=== PATIENT | female | born 1995 | race Caucasian/White ===

== ENCOUNTER 2018-06-03 14:16 | Emergency (ER) | payer OTHER ==
[2018-06-03 14:58] VITALS: BP 123/67
--- NOTE | 2018-06-03 15:11 | UC ---
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 No LOC. Headache pain in frontal over the area of impact. No nausea, confusion or difficulty concentrating. - History Of Current Complaint Chief Complaint: UCHeadInjury Stated Complaint: SPORTS HEAD INJURY - NO L.O.C. Time Seen by Provider: 06/03/18 15:01 Hx Obtained From: Patient Hx Last Menstrual Period: 05/23/18 ?: No Onset/Duration: Sudden Onset, Lasting Hours - 4, Still Present Severity Currently: Severe Severity Initially: Mild Pain Intensity: 1 Character: Dull Aggravating Factor(s): Other - touch Alleviating Factor(s): Nothing Associated Signs And Symptoms: Positive: Negative - Risk Factors SDH Risk Factor: Recent Trauma - Allergies/Home Medications Allergies/Adverse Reactions: Allergies Allergy/AdvReac Type Severity Reaction Status Date / Time No Known Allergies Allergy Verified 06/03/18 14:58 Home Medications: Home Medications NK [No Home Medications Reported] 06/03/18 [History Confirmed 06/03/18] PMH/Surg Hx/FS Hx/Imm Hx Previously Healthy: Yes - Surgical History Surgical History: Yes Surgery Procedure, Year, and Place: 2016 elbow surgery - Family History Known Family History: Negative: Cardiac Disease, Hypertension, Diabetes - Social History Occupation: Student Lives: Dormitory/Roommates Alcohol Use: Weekly Substance Use Type: None Smoking Status (MU): Never Smoked Tobacco Review of Systems Neurological: Headache Is Patient Immunocompromised?: No All Other Systems Reviewed And Are Negative: Yes Physical Exam Triage Information Reviewed: Yes Appearance: Well-Appearing, No Pain Distress, Well-Nourished Vital Signs: Initial Vital Signs Temp 97.7 F 06/03/18 14:51 Pulse 56 06/03/18 14:51 Resp 16 06/03/18 14:51 BP 123/67 06/03/18 14:51 Pulse Ox 98 06/03/18 14:51 Vital Signs Reviewed: Yes Eye Exam: Normal ENT Exam: Normal Respiratory Exam: Normal Cardiovascular Exam: Normal Musculoskeletal Exam: Normal Musculoskeletal: Positive: Other: - mild tenderness over the left temporal region. Neurological Exam: Normal Psychological Exam: Normal Skin Exam: Normal Head Injury Course/Dx - Differential Dx/Diagnosis Differential Diagnosis/HQI/PQRI: Cerebral Contusion, Concussion Without LOC, Contusion, Hematoma Provider Diagnoses: Contusion head Discharge - Sign-Out/Discharge Documenting (check all that apply): Patient Departure All imaging exams completed and their final reports reviewed: No Studies - Discharge Plan Condition: Stable Disposition: HOME Patient Education Materials: Contusion in Adults (ED), Facial Contusion (ED) Referrals: No Primary Care Phys,NOPCP [Primary Care Provider] - - Billing Disposition and Condition Condition: STABLE Disposition: Home
== END 2018-06-03 15:26 | disposition home or self-care (01) ==
LOC: UCCORT 14:16
DX: S00.93XA Contusion of unspecified part of head, initial encounter (principal); W50.0XXA Accidental hit or strike by another person, initial encounter; Y93.63 Activity, rugby; Y92.9 Unspecified place or not applicable
CPT/HCPCS: 99201; G0463